=== PATIENT | female | born 2000 | race Asian ===

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

== ENCOUNTER 2019-07-06 18:31 | Emergency (ER) | payer BC, SELFPAY ==
[2019-07-06 18:31] VITALS: BP 127/75; PULSE 89; RESP 16; TEMP 36.6; O2SAT 100; BMI 16.5
[2019-07-06 18:57] VITALS: BP 125/75; PULSE 89; RESP 16; TEMP 36.6; O2SAT 98
[2019-07-06] MEDS: Mag Hydrox/Al Hydrox/Simeth 30 ML UDC PO (19:40)
[2019-07-06] MEDS: Pantoprazole Sodium 40 MG Tablet PO (19:40)
[2019-07-06] MEDS: Dicyclomine 10 MG Capsule 20 MG PO (19:40)
--- NOTE | 2019-07-06 19:44 | ED.VIS.GI ---
History of Present Illness Chief Complaint: Abd Pain Informant: Patient, Family - Abdominal Pain/Flank Pain Onset: Month(s) - several Context: Onset with activity - within minutes after eating/swallowing food Timing: Intermittent Quality: Aching Location: Epigastric Current Severity: Moderate Maximum Severity: Moderate Worsened by: Food Relieved by: Nothing - Nausea/Vomiting/Emesis GI Symptom: Negative for: Nausea, Vomiting - Diarrhea/Melena/Hematochezia GI Symptom: Diarrhea - recently; resolved now. Negative for: Melena, Hematochezia Onset: Days - 2 Stool Quality: Negative for: Mucous, Black, Maroon, REENA per rectum Associated Symptoms: Negative for: Dysuria, Frequency, Hematuria, Urgency LMP: unknown - irregular Narrative: Patient has been having symptoms for months. Couple days ago she started having diarrhea so she went to urgent care and they told her she had a stomach bug. The diarrhea is gone but the pain persists and is a little worse than usual. She has not been seen for this pain that she has been having for months. She denies any melena, vomiting, or bright red blood per rectum. No right upper quadrant pain. The pain starts very quickly after swallowing. Past Medical History - Allergies and Home Meds Allergies/Adverse Reactions: Allergies No Known Allergies Allergy (Verified 10/02/18 23:34) Primary Care Physician: Alyce Broussard MD [Primary Care Provider] - 1-2 Weeks Past Medical History: None Surgical History: no surgical history Lives: With Family Smoking Status: Never smoker Alcohol: None Review of Systems General: Denies: Chills, Fever, Sweats Eyes: Denies: Visual changes - bilaterally, Diplopia ENT: Denies: Rhinorrhea, Sore throat Cardiovascular: Denies: Chest pain, Palpitations Respiratory: Denies: Dyspnea, Cough, Dyspnea on exertion Gastrointestinal: Reports: Abdominal pain, Diarrhea - Resolved now today. Denies: Nausea, Vomiting, Melena, Hematochezia Genitourinary: Denies: Dysuria, Hematuria, Frequency Musculoskeletal: Denies: Back pain, Extremity Pain Skin: Denies: Rash, Wounds Neurological: Denies: Headache, Weakness, Numbness Physical Exam Vital Signs/Narrative: Vital Signs Temp Pulse Resp BP Pulse Ox 07/06/19 18:57 97.8 F 89 16 125/75 H 98 07/06/19 18:31 97.8 F 89 16 127/75 H 100 Inital Vital Signs reviewed: Yes General: Well nourished, Well developed, No Acute Distress - Well-appearing, conversive in full sentences Head: Normocephalic, Atraumatic Eyes: Perrl, EOMI ENT: Moist mucous membranes, No rhinorrhea Neck: Supple, Nontender Cardiovascular: Regular rate, Regular rhythm, No murmurs Respiratory: No distress, CTA bilaterally, Chest nontender Abdomen: Soft, Nondistended, Normal bowel sounds, Tender - Epigastrium and periumbilical area, no hernias. Negative for: Guarding, Rebound tenderness, Thomas's sign Back: Nontender, Normal Inspection. Negative for: CVA tenderness Extremities: Nontender, No edema. Negative for: Calf Tenderness Skin: Normal color, No rash, No Trauma Neurological: Alert, Oriented x3, Cranial nerves II-XII grossly intact, Normal Strength, Normal Sensation, Normal Gait Psychological: Normal affect, Normal Mood Diagnostic/Tx/Re-eval Laboratory Tests 07/06/19 07/06/19 Range/Units 19:50 19:50 WBC 4.3 L (4.4-11.0) K/mm3 RBC 4.84 (4.2-5.4) M/mm3 Hgb 14.5 (12.0-15.0) g/dL Hct 43.0 (37-47) % MCV 88.8 (81-99) fL MCH 30.0 (27.0-32.0) pg MCHC 33.7 (32-36) g/dL RDW Std Deviation 38.8 (35.1-43.9) fl RDW Coeff of Michela 11.9 (11.6-14.6) % Plt Count 166 (150-450) K/mm3 MPV 9.7 (6.2-12.0) fl Immature Gran % (Auto) 0.200 (0.0-0.9) % Neut % (Auto) 48.0 (47-70) % Lymph % (Auto) 36.6 (19-41) % [place] % (Auto) 10.7 H (0-10) % Eos % (Auto) 4.0 (0-5) % Baso % (Auto) 0.5 (0-1) % Absolute Neuts (auto) 2.1 (2.0-7.7) X10^3/uL Absolute Lymphs (auto) 1.57 (0.83-4.51) X10^3/uL Nucleated RBC % 0 (0-5) % Differential Comment SCANNED Sodium 138 (136-145) mmol/L Potassium 3.8 (3.5-5.1) mmol/L Chloride 107 (98-107) mmol/L Carbon Dioxide 25.0 (21.0-32.0) mmol/L Anion Gap 6 (5-15) BUN 9 (7-18) mg/dL Creatinine 0.85 (0.55-1.02) mg/dL Estim Creat Clear Calc 73.18 ml/min Est GFR (MDRD) Af Amer 110 (>60) mL/min Est GFR (MDRD) Non-Af 91 (>60) mL/min BUN/Creatinine Ratio 10.6 (10-20) RATIO Glucose 90 (74-106) mg/dL Calcium 9.0 (8.5-10.1) mg/dL Total Bilirubin 0.20 (0.20-1.00) mg/dL AST 29 (15-37) U/L ALT 18 (13-56) U/L Alkaline Phosphatase 38 L (45-117) U/L Total Protein 7.8 (6.4-8.2) g/dL Albumin 3.7 (3.2-5.0) g/dL Globulin 4.1 (2.2-4.2) g/dL Albumin/Globulin Ratio 0.9 (0.9-2.4) RATIO Lipase 119 (73-393) U/L - Medical Decision Making Patient is improved after GI cocktail, Protonix, Bentyl. Her symptoms are consistent with gastritis, possibly peptic ulcer disease. She does not take a lot of ibuprofen or alcohol. She will need to follow-up, she was given appropriate follow-up information and resources for a physician, as she states she is in between physicians right now. ED Disposition - Plan for ED Patient: Disposition: Home or Assisted Living Diagnosis: Acute gastritis without hemorrhage Instructions: GASTRITIS vs. ULCER Prescriptions: Pantoprazole Sodium [Protonix] 40 mg PO DAILY #30 tab Prescription Printed Referrals: Alyce Broussard MD [Primary Care Provider] - 1-2 Weeks
[2019-07-06 19:56] LABS: Absolute Lymphocyte Count 1.57 X10^3/uL (0.83-4.51); Absolute Neutrophil Count 2.1 X10^3/uL (2.0-7.7); Basophil# 0.02 X10^3/uL; Basophil% 0.5 % (0-1); Eosinophil# 0.17 X10^3/uL; Hemoglobin 14.5 g/dL (12.0-15.0); Lymphocyte # 1.57 X10^3/ul (4.0); Lymphocyte % 36.6 % (19-41); Mean Corp Hgb Conc 33.7 g/dL (32-36); Mean Corpuscular Volume 88.8 fL (81-99); Mean Platelet Vol. 9.7 fl (6.2-12.0); Monocyte# 0.46 X10^3/uL; Monocyte% 10.7 % (0-10); NRBC Flagged by Analyzer 0 % (0-5); Neutrophil # 2.06 X10^3/uL (2.7-7.7); POSITIVE MORPHOLOGY YES; Platelet Count 166 K/mm3 (150-450); RBC Distribution Width CV 11.9 % (11.6-14.6); RBC Distribution Width SD 38.8 fl (35.1-43.9); Red Blood Count 4.84 M/mm3 (4.2-5.4); White Blood Count 4.3 K/mm3 (4.4-11.0)
[2019-07-06 20:00] LABS: Differential Indicated SCAN CRITERIA MET
[2019-07-06 20:16] LABS: ALB/GLOB Ratio 0.9 RATIO (0.9-2.4); AST(SGOT) 29 U/L (15-37); Alanine Aminotransfer ALT/SGPT 18 U/L (13-56); Albumin, Serum 3.7 g/dL (3.2-5.0); Alkaline Phosphatase 38 U/L (45-117); Anion Gap 6 (5-15); BUN 9 mg/dL (7-18); BUN/Creat Ratio 10.6 RATIO (10-20); Chloride 107 mmol/L (98-107); Creatinine, Serum 0.85 mg/dL (0.55-1.02); EST Glomerular Filtration Rate 91 mL/min (>60); Est Glom Filt Rate - Afr Amer 110 mL/min (>60); Estimated Creatinine Clearance 73.18 ml/min; Globulin 4.1 g/dL (2.2-4.2); Glucose 90 mg/dL (74-106); Lipase 119 U/L (73-393); Potassium 3.8 mmol/L (3.5-5.1); Protein, Total 7.8 g/dL (6.4-8.2); Sodium Level 138 mmol/L (136-145)
[2019-07-06 20:29] LABS: Differential Comment SCANNED
[2019-07-06 20:57] VITALS: BP 117/59; PULSE 81; RESP 16; O2SAT 100
--- NOTE | 2019-07-06 20:57 | ED.RN ---
THIS NURSE REVIEWED D/C INSTRUCTIONS WITH PT. PT VERBALIZED UNDERSTANDING OF INSTRUCTIONS. PT DENIES FURTHER NEEDS OR QUESTIONS AT THIS TIME. PT AMBULATES FROM ROOM ON OWN WITHOUT ASSISTANCE FROM STAFF
== END 2019-07-06 20:58 | disposition home or self-care (01) ==
PROVIDERS: Emergency Provider Emergency Medicine; Family Provider Pediatrics; PCP Pediatrics
DX: K29.00 Acute gastritis without bleeding (principal); Z79.899 Other long term (current) drug therapy
CPT/HCPCS: 80053; 83690; 85025; 99283

== ENCOUNTER → 2024-04-05 | Outpatient (CLI) | payer OTHER, SELFPAY ==
[2024-04-05 11:16] LABS: Free T3 3.2 pg/mL (2.18-3.98); T4 Free Direct 0.87 ng/dL (0.76-1.46)
[2024-04-07 16:10] LABS: ACCA 56 units (0-90); ALCA 15 units (0-60); AMCA 64 units (0-100); Endomysial Antibody IgA Negative (Negative); Immunoglobulin A 324 mg/dL (87-352); gASCA 56 units (0-50); t-Transglutaminase IgA <2 U/mL (0-3)
[2024-04-09 01:08] LABS: Beef <0.10 kU/L (Class 0); Chocolate <0.10 kU/L (Class 0); Codfish <0.10 kU/L (Class 0); Corn <0.10 kU/L (Class 0); Egg, Whole <0.10 kU/L (Class 0); Milk (Cow) <0.10 kU/L (Class 0); Mussels <0.10 kU/L (Class 0); Peanut <0.10 kU/L (Class 0); Pork <0.10 kU/L (Class 0); Salmon <0.10 kU/L (Class 0); Soybean <0.10 kU/L (Class 0); Tuna <0.10 kU/L (Class 0); Wheat 0.14 kU/L (Class 0/I)
== END | disposition home or self-care (01) ==
LOC: LAB 10:00
PROVIDERS: PCP Pediatrics
DX: R10.9 Unspecified abdominal pain (principal); R19.7 Diarrhea, unspecified
CPT/HCPCS: 36415; 82784; 83516; 84439; 84443; 84481; 86003; 86005; 86036; 86255; 86671

== ENCOUNTER 2024-09-08 10:27 | Outpatient (CLI) | payer OTHER, SELFPAY ==
[2024-09-08 11:58] LABS: Absolute Lymphocyte Count 1.76 X10^3/uL (0.83-4.51); Absolute Neutrophil Count 2.2 X10^3/uL (2.0-7.7); Basophil# 0.05 X10^3/uL; Basophil% 1.1 % (0-1); Eosinophil# 0.19 X10^3/uL; Eosinophils% 4.2 % (0-5); Hematocrit 41.1 % (37-47); Hemoglobin 13.7 g/dL (12.0-15.0); Lymphocyte # 1.76 X10^3/ul (0.83-4.51); Lymphocyte % 38.7 % (19-41); Mean Corp Hgb Conc 33.3 g/dL (32-36); Mean Corpuscular Volume 89.9 fL (81-99); Mean Platelet Vol. 9.9 fl (6.2-12.0); Monocyte# 0.33 X10^3/uL; Monocyte% 7.3 % (0-10); NRBC Flagged by Analyzer 0 % (0-5); Neutrophil # 2.21 X10^3/uL (2.7-7.7); Neutrophil % 48.5 % (47-70); Platelet Count 240 K/mm3 (150-450); RBC Distribution Width CV 12.4 % (11.6-14.6); RBC Distribution Width SD 40.8 fl (35.1-43.9); Red Blood Count 4.57 M/mm3 (4.2-5.4); White Blood Count 4.6 K/mm3 (4.4-11.0)
[2024-09-08 13:18] LABS: PTHIN 38 pg/mL (11-61)
[2024-09-08 13:20] LABS: ALB/GLOB Ratio 1.3 RATIO (0.9-2.4); AST(SGOT) 20 U/L (<=31); Alanine Aminotransfer ALT/SGPT 9 U/L (<=34); Albumin, Serum 4.5 g/dL (3.5-5.0); Alkaline Phosphatase 37 U/L (35-104); Anion Gap 13 (5-15); BUN 9 mg/dL (4-19); BUN/Creat Ratio 11.4 RATIO (10-20); CRP < 3.00 mg/L (0.0-3.0); Calcium,Total 9.7 mg/dL (7.6-11.0); Carbon Dioxide 20.7 mmol/L (21.0-32.0); Chloride 103 mmol/L (98-108); Creatinine, Serum 0.77 mg/dL (0.70-1.20); EST Glomerular Filtration Rate 110 (>60); Ferritin 47 ng/mL (22-378); Globulin 3.4 g/dL (2.2-4.2); Glucose 81 mg/dL (70-99); Potassium 4.1 mmol/L (3.3-5.1); Protein, Total 7.8 g/dL (5.9-8.4); Sodium Level 136 mmol/L (133-145); Vitamin B12 715 pg/mL (180-914); Vitamin D,25 Hydroxy 39.8 ng/mL (30-100)
[2024-09-08 18:32] LABS: Hemoglobin A1c 5.1 % (<=5.6)
[2024-09-09 15:08] LABS: Folate, RBC (Hct) Test 42.9 % (34.0-46.6); Folates, RBC Test 737 ng/mL (>498)
== END 2024-09-08 23:59 | disposition home or self-care (01) ==
LOC: LAB 10:31
PROVIDERS: PCP Registered Nurse
DX: G90.A Postural orthostatic tachycardia syndrome [POTS] (principal); K50.90 Crohn's disease, unspecified, without complications
CPT/HCPCS: 36415; 80053; 82306; 82607; 82728; 82747; 83036; 83970; 85014; 85025; 86140

== ENCOUNTER → 2024-10-10 | Outpatient (CLI) | payer OTHER, SELFPAY ==
--- NOTE | 2024-10-10 10:22 | MRI_ITS ---
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 IV contrast: 10 mL Clariscan PO contrast: Administered, type and dose information not provided. COMPARISON: None FINDINGS: Note that the exam was optimized for evaluation of the bowel rather than the remaining abdominopelvic viscera, accordingly some upper abdominal viscera are excluded from the [id number]. Note also that a small portion of the proximal stomach extends above the field of view. Note that dynamic T2 and diffusion sequences were note that not performed. Variable overall mild motion limitation. Liver: Grossly unremarkable. Spleen: Grossly unremarkable. Gallbladder: Possible layering sludge. Pancreas: Unremarkable. Adrenals: Grossly unremarkable. Kidneys: Fullness of the bilateral renal pelvis with at most trace caliectasis/hydronephrosis on the RIGHT. Bowel: Small portion of the proximal stomach extends above the field of view as above. No convincing areas of abnormal bowel wall thickening, mural stratification, hyperemia, or dilatation. No findings to suggest fistulization or abscess. Appendix not identified. Lymph nodes: Unremarkable. Vasculature: Unremarkable. Peritoneum: Unremarkable. Bladder: Distended by the end of the exam, otherwise unremarkable. Reproductive Organs: Pessary noted. Body Wall: Unremarkable. Bones: Small sacral Tarlov cysts, normal variant. MRI/Enterography Abd/Pel IMPRESSION: 1. No convincing MR evidence of inflammatory bowel disease. Note a small porti on of the proximal stomach extends above the field of view. 2. Fullness of the bilateral renal pelvis with at most trace hydronephrosis on the RIGHT. No obstructing process definitely identified. 3. Additional description as above. Reading Location: [id number]
[2024-10-10 10:55] VITALS: BP 119/74; PULSE 85; RESP 18; O2SAT 97; BMI 18.4
[2024-10-10] MEDS: Glucagon 1 MG/ML Syringe IV (12:06)
[2024-10-10] MEDS: 0.9% Saline Lock 10 ML Syringe IV (12:09)
[2024-10-10 12:25] VITALS: BP 100/67; PULSE 72; RESP 16; O2SAT 99
== END | disposition home or self-care (01) ==
PROVIDERS: PCP Registered Nurse
DX: K50.90 Crohn's disease, unspecified, without complications (principal); R10.13 Epigastric pain
CPT/HCPCS: 74183; 96374; A9575; A4216; J1610